=== PATIENT | male | born 1945 | race Caucasian/White ===

== ENCOUNTER 2018-08-08 09:19 | Emergency (ER) | payer OTHER ==
--- NOTE | 2018-08-08 10:33 | ER ---
Nurse's Notes [facility] Name: Ronald Rosenbaum Age: 73 yrs Sex: Male : 1945 Arrival Date: 08/08/2018 Time: 09:23 Bed 16 Private MD: Douglas Rodriguez C Diagnosis: Cutaneous abscess of left foot Presentation: 08/08 09:41 Presenting complaint: Patient states: Right first toe has "bunion" and it is infected. la1 I went to [facility] and they gave me IV vanco and an rx for bactrim to take at home. The redness is now spreading. Transition of care: patient was not received from another setting of care. Onset of symptoms was August 08, 2018. Risk Assessment: Do you want to hurt yourself or someone else? Patient reports no desire to harm self or others. Initial Sepsis Screen: Does the patient meet any 2 criteria? No. Patient's initial sepsis screen is negative. Does the patient have a suspected source of infection? No. Patient's initial sepsis screen is negative. Care prior to arrival: None. 09:41 Method Of Arrival: Ambulatory la1 09:41 Acuity: BORIS 3 la1 Historical: - Allergies: 09:41 Iodinated Contrast Media - IV Dye; la1 - PMHx: 09:41 Diabetes - NIDDM; Hypertension; la1 - Immunization history:: Adult Immunizations up to date. - Social history:: Smoking status: Patient/guardian denies using tobacco. - Ebola Screening: : No symptoms or risks identified at this time. Screenin:00 Abuse screen: Denies threats or abuse. Nutritional screening: No deficits noted. jl7 Tuberculosis screening: No symptoms or risk factors identified. Fall Risk None identified. Assessment: 10:00 General: Appears in no apparent distress. uncomfortable, Behavior is calm, cooperative, jl7 appropriate for age. Pain: Denies pain. Neuro: Level of Consciousness is awake, alert, obeys commands, Oriented to person, place, time, situation. Cardiovascular: Patient's skin is warm and dry. Respiratory: Airway is patent Respiratory effort is even, unlabored, Respiratory pattern is regular, symmetrical. Derm: Skin is pink, warm \\T\\ dry. blister noted to right great toe. Vital Signs: 09:44 Pulse 65; Resp 18; Temp 98.7(O); Pulse Ox 98% on R/A; Weight 96.16 kg; Height 5 ft. 10 la1 in. (177.80 cm); Pain 7/10; 09:45 BP 148 / 88; la1 09:44 Body Mass Index 30.42 (96.16 kg, 177.80 cm) la1 ED Course: 09:23 Patient arrived in ED. rg4 09:23 Douglsa Rodriguez MD is Private Physician. rg4 09:43 Triage completed. la1 09:43 Arm band placed on left wrist. la1 09:45 Juan Luis Pagan MD is Attending Physician. gs 09:56 Chen Elizalde RN is Primary Nurse. jl7 10:00 Patient has correct armband on for positive identification. Bed in low position. Call jl7 light in reach. Side rails up X 1. Pulse ox on. Warm blanket given. 10:32 Jose Frank DPM is Referral Physician. gs 11:01 No provider procedures requiring assistance completed. Patient did not have IV access jl7 during this emergency room visit. Administered Medications: No medications were administered Outcome: 10:32 Discharge ordered by . gs 11:01 Discharged to home ambulatory, with family. jl7 11:01 Condition: stable 11:01 Discharge instructions given to patient, family, Instructed on discharge instructions, follow up and referral plans. medication usage, wound care, Demonstrated understanding of instructions, follow-up care, medications, wound care, Prescriptions given X 1. 11:02 Patient left the ED. jl7 Signatures: Tim Awad RN RN la1 [facility] Chen Elizalde RN RN 7 Juan Luis Pagan MD MD Corrections: (The following items were deleted from the chart) 09:57 09:41 Presenting complaint: Patient states: Right first toe has "bunion" and it is la1 infected. I went to [facility] ER and they gave me IV vanco and an rx for bactrim to take at home. The redness is not spreading. la1
--- NOTE | 2018-08-08 10:33 | EDPHYS ---
Physician Documentation [facility] Name: Ronald Rosenbaum Age: 73 yrs Sex: Male : 1945 Arrival Date: 08/08/2018 Time: 09:23 Bed 16 Private MD: Douglas Rodriguez C ED Physician Juan Luis Pagan HPI: 08/08 10:29 This 73 yrs old Male presents to ER via Ambulatory with complaints of Toe gs Infection. 10:29 The complaints affect the left foot, medial aspect of left toes. Context: swelling gs redness tender no fever. Modifying factors: the symptoms are aggravated by weight bearing, wearing shoes. Severity of symptoms: At their worst the symptoms were moderate, in the emergency department the symptoms are unchanged. The patient has been recently seen by a physician: Historical: - Allergies: 09:41 Iodinated Contrast Media - IV Dye; la1 - PMHx: 09:41 Diabetes - NIDDM; Hypertension; la1 - Immunization history:: Adult Immunizations up to date. - Social history:: Smoking status: Patient/guardian denies using tobacco. - Ebola Screening: : No symptoms or risks identified at this time. ROS: 10:29 All other systems are negative. gs Exam: 10:29 ENT: Nares patent. No nasal discharge, no septal abnormalities noted. Tympanic gs membranes are normal and external auditory canals are clear. Oropharynx with no redness, swelling, or masses, exudates, or evidence of obstruction, uvula midline. Mucous membranes moist. Cardiovascular: Regular rate and rhythm with a normal S1 and S2. No gallops, murmurs, or rubs. Normal PMI, no JVD. No pulse deficits. Respiratory: Lungs have equal breath sounds bilaterally, clear to auscultation and percussion. No rales, rhonchi or wheezes noted. No increased work of breathing, no retractions or nasal flaring. Abdomen/GI: Soft, non-tender, with normal bowel sounds. No distension or tympany. No guarding or rebound. No evidence of tenderness throughout. Neuro: Awake and alert, GCS 15, oriented to person, place, time, and situation. Cranial nerves II-XII grossly intact. Motor strength 5/5 in all extremities. Sensory grossly intact. Cerebellar exam normal. Normal gait. 10:29 Constitutional: The patient appears in no acute distress, alert, awake. 10:29 Musculoskeletal/extremity: Extremities: 1st left mtp bunion with abscess mild cellulitis, Circulation is intact in all extremities. Sensation intact. 10:29 Skin: cellulitis, on the medial aspect of left toes. Vital Signs: 09:44 Pulse 65; Resp 18; Temp 98.7(O); Pulse Ox 98% on R/A; Weight 96.16 kg; Height 5 ft. 10 la1 in. (177.80 cm); Pain 7/10; 09:45 BP 148 / 88; la1 09:44 Body Mass Index 30.42 (96.16 kg, 177.80 cm) la1 Procedures: 10:29 I \T\ D: Incision and drainage was performed for an abscess of the left Prepped with gs Betadine, Incised with 18 gauge needle. MDM: 10:11 Patient medically screened. 10:29 Differential diagnosis: cellulitis, abscess. Data reviewed: vital signs, nurses notes. gs Response to treatment: the patient's symptoms have markedly improved after treatment, and as a result, I will discharge patient. Administered Medications: No medications were administered Disposition: 08/08/18 10:32 Discharged to Home. Impression: Cutaneous abscess of left foot. - Condition is Stable. - Discharge Instructions: Skin Abscess. - Prescriptions for Keflex 500 mg Oral Capsule - take 2 capsule by ORAL route every 12 hours for 7 days; 28 capsule. - Medication Reconciliation Form, Thank You Letter, Antibiotic Education, Prescription Opioid Use form. - Follow up: Jose Frank DPM; When: 2 - 3 days; Reason: Re-evaluation by your physician. Signatures: Tim Awad RN RN la1 Chen Elizalde RN RN jl7 Juan Luis Pagan MD MD gs Corrections: (The following items were deleted from the chart) 11:02 10:32 08/08/2018 10:32 Discharged to Home. Impression: Cutaneous abscess of left foot. jl7 Condition is Stable. Forms are Medication Reconciliation Form, Thank You Letter, Antibiotic Education, Prescription Opioid Use. Follow up: Jose Frank; When: 2 - 3 days; Reason: Re-evaluation by your physician.
== END 2018-08-08 11:02 | disposition home or self-care (01) ==
LOC: ER 09:19
PROC: 0J9R0ZZ Drainage of Left Foot Subcutaneous Tissue and Fascia, Open Approach (ICD-10-PCS; principal; 2018-08-08)
DX: L02.612 Cutaneous abscess of left foot (principal); I10 Essential (primary) hypertension; Z91.041 Radiographic dye allergy status
CPT/HCPCS: 99283

== ENCOUNTER 2022-07-07 12:00 | Day surgery (SDC) | payer OTHER ==
--- NOTE | 2022-07-04 15:33 | RAD REPORT ---
EXAM DESCRIPTION: Nolan Amador (2 Views)07/04/2022 3:21 pm CLINICAL HISTORY: Preop for carotid angiogram. Hypertension COMPARISON: 2016 FINDINGS: The lungs appear clear of acute infiltrate. The heart is normal size IMPRESSION: No acute abnormalities displayed
[2022-07-04 15:46] LABS: Absolute Lymphocytes (CBC) 1.5 K/uL (0.7-4.9); Hematocrit 40.9 % (39.6-49.0); Lymphocytes % 44.9 % (15.3-44.8); MCV 90.2 fL (80-100); MPV 8.3 fL (7.6-11.3); RBC Red Blood Cell Count 4.54 M/uL (4.33-5.43)
[2022-07-04 15:48] LABS: Protime INR 0.94
[~2022-07-07 12:00] MED LIST: HEPA 1000U/500MLS 2,000 UNIT/1,000 ML BAG IV ONE; LIDOCAINE 1% 20 ML MDV ONE; NA CHLORIDE 0.9% 500 ML ONE
[2022-07-07] MEDS ORDERED: FENTANYL CITR 100 MCG/2 ML ONE (13:07)
[2022-07-07] MEDS ORDERED: ATROPINE SULF 1 MG/10 ML SYR IV ONE (13:08)
[2022-07-07] MEDS ORDERED: MIDAZOLAM HCL 2 MG/2 ML INJ ONE (13:08)
[2022-07-07] MEDS ORDERED: NITROGLYCERIN 100 MCG/ML SYR (for cath lab use only) IV ONE (13:08)
[2022-07-07] MEDS ORDERED: DIPHENHYDRAMINE 50 MG/ML VIAL ONE (13:37)
[2022-07-07] MEDS ORDERED: METHYLPREDNISOLONE 125 MG INJ ONE (13:38)
[2022-07-07] MEDS ORDERED: ONDANSETRON 4 MG/2 ML VIAL ONE (13:43)
[2022-07-07] MEDS ORDERED: HYDRALAZINE HCL 20 MG/ML VIAL ONE (14:28)
--- NOTE | 2022-07-07 14:58 | OP ---
Date of Procedure: 07/07/2022 Surgeon: ALEXANDRO OSULLIVAN Procedure Performed: Bilateral carotid angiogram. Indication: TIA with abnormal carotid Doppler suggestive of significant stenosis on the right side. Access: Right femoral artery 6-Irish closed with 6-Irish Angio-Seal. Complications: None. Bleeding: Less than 10 mL. Anesthesia: Total sedation time was 30 minutes, used fentanyl and Versed. Description Of Procedure: After risks, benefits, and alternatives were explained, the patient agreed to the procedure and signed informed consent. The patient was brought into the cardiac catheterizat ion laboratory, prepped and draped in the usual sterile fashion. Then, I accessed right femoral rebecca ry using micropuncture kit, ultrasound guidance, and placed initially a 4-Irish Twin Brooks sheath and took a 3DRC catheter into the aortic root, engaged the right common carotid artery, took standard vie ws in the left common carotid artery, took standard views and the catheter was removed and then after an angiogram of the groin, closure was suitable, so I dilated the entrance site and placed a 6-Frenc h Angio-Seal after removal of the sheath with good hemostasis. Findings: 1.Right common carotid artery distally is about 50% stenosis and extending to the right internal car otid artery and then becomes above 40% stenosed. 2.Left common carotid artery is normal, left internal carotid artery is with proximal 20% stenosis a nd the left external carotid artery appears to be normal. Conclusion: Moderate carotid stenosis. Recommendation: Medical management. SR/MODL Voice ID: [id number] Report ID: [id number]
[2022-07-07 16:15] VITALS: BP 135/91; O2SAT 96
--- NOTE | 2022-07-07 17:39 | EKG ---
Test Date: 2022-07-04 Test Time: 15:01:54 Mechanical Planner: FERNANDA MEASUREMENT RESULTS: Intervals: Rate: 49 DC: 416 QRSD: 118 QT: 442 QTc: 399 [place]: P: 19 DC: 416 QRS: -77 T: 65 INTERPRETIVE STATEMENTS: Marked sinus bradycardia with marked sinus arrhythmia with 1st degree AV block Left axis deviation Septal infarct, age undetermined Abnormal ECG Compared to ECG 06/13/2016 12:58:57 Sinus rhythm no longer present Myocardial infarct finding still present Electronically Signed On 07-07-22 17:34:27 INFORMATION COORDINATOR by David Flores
== END 2022-07-07 16:35 | disposition home or self-care (01) ==
LOC: CCL 12:00
PROVIDERS: ATTEND Internal Medicine
DX: I65.23 Occlusion and stenosis of bilateral carotid arteries (principal); I44.0 Atrioventricular block, first degree; E11.9 Type 2 diabetes mellitus without complications; E78.5 Hyperlipidemia, unspecified; Z86.73 Personal history of transient ischemic attack (TIA), and cerebral infarction without residual deficits; Z91.041 Radiographic dye allergy status
CPT/HCPCS: 93005; 85025; 80048; 36415; 85610; 82947; 85730; 71046; 36222; 76937; C1893; C1760; G0269; J0360; J2001; J1200; J2250; J3010; J7040; J1644; J2930; J0461; J2405